=== PATIENT | female | born 1940 | race Caucasian/White ===

== ENCOUNTER → 2017-10-12 | Outpatient (CLI) | payer OTHER ==
[~2017-10-12] MED LIST: ASPI81CH PO; CHOL10002 PO; OLME20 PO; SERT100 PO; SIMV40 PO; SUMA25 PO
[2017-10-12 14:16] LABS: BASOPHILS ABSOLUTE AUTO 0.05 K/mm3 (0.00-0.23); BASOPHILS PERCENT AUTO 1 % (0-2); EOSINOPHILS ABSOLUTE AUTO 0.34 K/mm3 (0.00-0.68); EOSINOPHILS PERCENT AUTO 4 % (0-6); Hematocrit 41.9 % (33.0-51.0); Hemoglobin 14.2 g/dL (11.5-16.0); IMMATURE GRAN ABSOLUTE AUTO 0.03 K/mm3 (0.00-0.10); IMMATURE GRAN PERCENT AUTO 0 % (0-1); LYMPHOCYTES PERCENT AUTO 29 % (21-46); MONOCYTES ABSOLUTE AUTO 0.67 K/mm3 (0.16-1.47); MONOCYTES PERCENT AUTO 8 % (4-13); Mean Corpuscular HGB 31.7 pg (26.0-34.0); Mean Corpuscular HGB Conc 33.9 g/dL (31.5-36.5); Mean Corpuscular Volume 94 fL (80-100); Mean Platelet Volume 10.8 fL (9.1-12.4); NEUTROPHILS ABSOLUTE AUTO 5.14 K/mm3 (1.96-9.15); NEUTROPHILS PERCENT AUTO 59 % (41-73); Platelet Count 272 K/mm3 (150-400); RDW Coefficient Variation 12.7 % (11.7-14.2); Red Blood Cell Count 4.48 M/mm3 (3.80-5.20); White Blood Cell Count 8.73 K/mm3 (4.00-11.30)
[2017-10-12 14:51] LABS: Alanine Aminotransfer (ALT/SGP 27 U/L (12-78); Albumin/Globulin Ratio 1.2 (0.8-1.8); Alk Phos 95 U/L (50-136); Anion Gap 10 mmol/L (6-16); Aspartate Aminotrans (AST/SGOT 21 U/L (12-37); Bilirubin, Total 0.6 mg/dL (0.1-1.0); Blood Urea Nitrogen 10 mg/dL (8-24); Bun/Creatinine Ratio 12.1 (12.0-20.0); CO2, Blood 23 mmol/L (21-32); Calcium, Blood 9.3 mg/dL (8.5-10.1); Chloride, Blood 107 mmol/L (98-108); Creatinine, Blood 0.83 mg/dL (0.40-1.00); Globulin, Blood 3.4 g/dL (2.2-4.0); Glomerular Filtration Rate >60 (60-); Glucose, Blood 102 mg/dL (70-99); Potassium, Blood 3.9 mmol/L (3.5-5.5); Sodium, Blood 140 mmol/L (136-145); Total Protein, Blood 7.4 g/dL (6.4-8.2)
== END ==
LOC: LAB SHORT 14:09 → LAB 14:09
PROVIDERS: Physician Assistant
DX: R10.9 Unspecified abdominal pain (principal)
CPT/HCPCS: 80053; 83690; 85025

== ENCOUNTER 2020-01-11 07:09 | Day surgery (SDC) | payer OTHER ==
[~2020-01-11] VITALS: Ht 167.6 cm; Wt 78.8 kg
[~2020-01-11 07:09] MED LIST changes: +Cranberry300 MG PO; +OMEPRAZOLE20 M1 PO; +[UNRECOGNIZED DRUG - CODE] PO
== END 2020-01-11 09:20 | disposition home or self-care (01) ==
LOC: ORSCSDS 07:09
PROVIDERS: Ophthalmology
PROC: 08RJ3JZ Replacement of Right Lens with Synthetic Substitute, Percutaneous Approach (ICD-10-PCS; principal; 2020-01-11 08:30)
DX: H25.11 Age-related nuclear cataract, right eye (principal); I10 Essential (primary) hypertension; E03.9 Hypothyroidism, unspecified; E11.9 Type 2 diabetes mellitus without complications; E78.00 Pure hypercholesterolemia, unspecified; Z79.899 Other long term (current) drug therapy
CPT/HCPCS: J2001; J2250; J3010; J3301; J7040; V2632

== ENCOUNTER 2020-02-15 06:17 | Day surgery (SDC) | payer OTHER ==
[~2020-02-15] VITALS: Ht 167.6 cm; Wt 76.7 kg
[2020-02-15] MEDS ORDERED: GLUC500 (06:50)
[2020-02-15] MEDS ORDERED: CENTRUM SILVER1 EAC2 PO (06:50)
--- NOTE | 2020-02-15 06:54 | NUR ---
02/15/20 0654 Javier Haider CALL LIGHT WITHIN REACH.
--- NOTE | 2020-02-15 08:04 | NUR ---
02/15/20 0804 NOLAN LATIF PATIENT VSS, PATIENT ASSISTED TO RECLINER AND BLANKET PROVIDED. PATIENT DENIES PAIN OR NAUSEA, IV DC'D. SHIELD AND TAPE IN PLACE. PATIENT CALLED FOR RIDE HOME. ENGAGED IN DISCHARGE TEACHING, ALL QUESTIONS ASKED AND ANSWERED. PATIENT AWAITING DISCHARGE TO
== END 2020-02-15 08:04 | disposition home or self-care (01) ==
LOC: ORSCSDS 06:17
PROVIDERS: Ophthalmology
PROC: 08RK3JZ Replacement of Left Lens with Synthetic Substitute, Percutaneous Approach (ICD-10-PCS; principal; 2020-02-15 07:30)
DX: H25.12 Age-related nuclear cataract, left eye (principal); I10 Essential (primary) hypertension; Z79.899 Other long term (current) drug therapy
CPT/HCPCS: J2001; J2250; J3010; J3301; J7040; V2632

== ENCOUNTER 2022-10-30 08:22 | Day surgery (SDC) | payer OTHER ==
[~2022-10-30] VITALS: Ht 167.6 cm; Wt 66.3 kg
[2022-10-30] VITALS (18 sets, daily range): BP systolic 96–160; BP diastolic 56–84
[~2022-10-30 08:22] MED LIST changes: +CENTRUM SILVER1 EAC2 PO; +GLUC500
--- NOTE | 2022-10-30 09:04 | NUR ---
Ambulatory in Day Surgery History, Chart, Medications and Allergies reviewed before start of procedure.Lungs clear T/O to Auscultation. Patient confirms NPO status and agrees with scheduled surgery. Patient States Post-Procedure ride home has been arranged.
--- NOTE | 2022-10-30 09:43 | NUR ---
10/30/22 0943 Sammi Odonnell HISTORY, CHART, MEDICATIONS AND ALLERGIES REVIEWED BEFORE START OF PROCEDURE. PATIENT CONFIRMS NPO STATUS AND AGREES WITH SCHEDULED PROCEDURE. 3-LEAD EKG REVIEWED WITH PHYSICIAN PRIOR TO START OF PROCEDURE. MONITOR INTACT WITH CONTINUOUS PULSE OXIMETRY,CAPNOGRAPHY, 3-LEAD EKG, INTERMITTENT BP. SUPPLEMENTAL O2 TO BE TITRATED THROUGHOUT PROCEDURE TO MAINTAIN O2 SATURATION ABOVE 90%. PATIENT DETERMINED TO BE ASA APPROPRIATE FOR PROPOFOL SEDATION PRIOR TO START OF PROCEDURE BY
--- NOTE | 2022-10-30 11:13 | NUR ---
DISCHARGE NOTE Discharge instructions reviewed with patient. Patient verbalizes understanding. Copy given to patient to take home. Lungs clear T/O to Auscultation. Discharged via wheelchair to private car for ride home.
== END 2022-10-30 11:11 | disposition home or self-care (01) ==
LOC: ORSCMMR 08:22 → ORD 09:30 → ORSCMMR 09:30
PROVIDERS: Internal Medicine Gastroenterology
PROC: 0DB48ZX Excision of Esophagogastric Junction, Via Natural or Artificial Opening Endoscopic, Diagnostic (ICD-10-PCS; principal; 2022-10-30 09:30)
PROC: 0DB58ZX Excision of Esophagus, Via Natural or Artificial Opening Endoscopic, Diagnostic (ICD-10-PCS; principal; 2022-10-30 09:30)
PROC: 0DB68ZX Excision of Stomach, Via Natural or Artificial Opening Endoscopic, Diagnostic (ICD-10-PCS; principal; 2022-10-30 09:30)
DX: R13.10 Dysphagia, unspecified (principal); K20.90 Esophagitis, unspecified without bleeding; K29.70 Gastritis, unspecified, without bleeding; I10 Essential (primary) hypertension; K21.9 Gastro-esophageal reflux disease without esophagitis; Z79.899 Other long term (current) drug therapy; E78.00 Pure hypercholesterolemia, unspecified; F32.A Depression, unspecified
CPT/HCPCS: 88305; 88342; A9270; C1726; J2250; J2704; J3010; J7120

== ENCOUNTER 2024-01-06 12:37 | Inpatient (IN) | payer OTHER ==
[~2024-01-06] VITALS: Ht 167.6 cm; Wt 59.7 kg
[2024-01-06] MEDS ORDERED: Morphine Sulfate 4 MG/1 ML Injection IV ONE (12:55)
[2024-01-06] MEDS ORDERED: Ondansetron HCl 2 MG / ML 2ML Vial IV ONE (12:55)
[2024-01-06 13:11] LABS: BASOPHILS ABSOLUTE AUTO 0.07 K/mm3 (0.00-0.23); BASOPHILS PERCENT AUTO 1 % (0-2); EOSINOPHILS PERCENT AUTO 1 % (0-6); Hematocrit 43.4 % (33.0-51.0); Hemoglobin 15.1 g/dL (11.5-16.0); IMMATURE GRAN ABSOLUTE AUTO 0.06 K/mm3 (0.00-0.10); IMMATURE GRAN PERCENT AUTO 0 % (0-1); LYMPHOCYTES ABSOLUTE AUTO 1.85 K/mm3 (0.84-5.20); LYMPHOCYTES PERCENT AUTO 13 % (21-46); MONOCYTES ABSOLUTE AUTO 0.72 K/mm3 (0.16-1.47); MONOCYTES PERCENT AUTO 5 % (4-13); Mean Corpuscular HGB 31.9 pg (26.0-34.0); Mean Corpuscular HGB Conc 34.8 g/dL (31.5-36.5); Mean Corpuscular Volume 92 fL (80-100); Mean Platelet Volume 10.9 fL (9.1-12.4); NEUTROPHILS ABSOLUTE AUTO 11.62 K/mm3 (1.96-9.15); NEUTROPHILS PERCENT AUTO 80 % (41-73); Platelet Count 261 K/mm3 (150-400); RDW Coefficient Variation 12.4 % (11.7-14.2); RDW Standard Deviation 41.4 fL (35.1-46.3); Red Blood Cell Count 4.73 M/mm3 (3.80-5.20); White Blood Cell Count 14.52 K/mm3 (4.00-11.30)
[2024-01-06 13:28] LABS: Bun/Creatinine Ratio 14.2 (12.0-20.0); Calcium, Blood 9.9 mg/dL (8.5-10.1); Creatinine, Blood 0.85 mg/dL (0.40-1.00); Potassium, Blood 3.4 mmol/L (3.5-5.5)
[2024-01-06] MEDS ORDERED: HYDROmorphone HCl/Pf 1MG SYR IV ONE (13:40)
[2024-01-06] MEDS ORDERED: Diazepam 5 MG / ML 2ML SYR IV ONE (14:15)
[2024-01-06] MEDS ORDERED: CeFAZolin Sodium 2,000 MG in NS 100 ML IV SCH (14:40)
[2024-01-06] MEDS ORDERED: Acetaminophen 325 MG TABLET PO PRN (15:00)
[2024-01-06] MEDS ORDERED: Ondansetron HCl 2 MG / ML 2ML Vial IV PRN (15:05)
[2024-01-06] MEDS ORDERED: FentaNYL Citrate 50 MCG/ML 2 ML Injection IV PRN ×2 (15:35→22:15)
[2024-01-06] MEDS ORDERED: HYDROcodone 5-APAP 325 TAB PO PRN (15:35)
[2024-01-06] MEDS ORDERED: Potassium Chloride 20 MEQ TabCR PO ONE ×2 (15:40→20:40)
[2024-01-06] MEDS ORDERED: SUMAtriptan succinate 50 MG Tab PO PRN (15:40)
--- NOTE | 2024-01-06 16:45 | NUR ---
PATIENT ARRIVED FROM ER TODAY. RIGHT FEMUR FX PATIENT IS A&OX4. HER RIGHT LEG IS EXTERNALLY ROTATED WITH SLIGHT REDNESS ON THE RIGHT HIP. SHE DENIES NUMBNESS OR TINGLING THROUGHOUT ALL EXTREMITIES. PEDAL PULSES ARE STRONG AND WARM TO TOUCH. PURWICK IS IN PLACE AND ON LOW CONTINUOUS SUCTION. SHE IS CURRENTLY LAYING IN BED WITH CALL LIGHT IN REACH.
[2024-01-06 16:47] VITALS: BP 197/92
[2024-01-06 17:14] VITALS: BP 177/120
[2024-01-06 17:18] VITALS: BP 192/118
[2024-01-06] MEDS ORDERED: Atorvastatin 10 MG Tab PO SCH (18:00)
[2024-01-06 18:04] VITALS: BP 183/118
[2024-01-06] MEDS ORDERED: HydrALAZINE HCl 20 MG / ML 1ML Vial IV PRN (18:15)
[2024-01-06 19:57] VITALS: BP 146/96
[2024-01-06] MEDS ORDERED: Potassium Chloride 10 Meq Tablet SA PO ONE ×2 (20:35)
[2024-01-06] MEDS ORDERED: Famotidine 20 MG Tab PO SCH (21:00)
[2024-01-06] MEDS ORDERED: Cranberry Extract 250MG W/30 MG Vitamin C Tab PO SCH (21:00)
[2024-01-07] VITALS (20 sets, daily range): BP systolic 102–170; BP diastolic 69–102
--- NOTE | 2024-01-07 04:30 | NUR ---
SHIFT SUMMARY FELICE WAS ALERT AND FULLY ORIENTED ON ASSESSMENT. SHE COMPLAINS OF 9/10 PAIN TO R HIP/THIGH, RESPONDED WELL TO NORCO, LATER REPORTING 0 PAIN. PT IS SLOW TO RESPOND AND HAS DIFFICULTY FINDING WORDS, BUT RESPONDS APPROPRIATELY TO ORIENTATION QUESTION WHEN GIVEN TIME TO ANSWER. PT KEPT NPO FROM MIDNIGHT IN ANTICIPATION FOR SURGERY ON DAY SHIFT. PT RESTING COMFORTABLY IN BED WITH CALL LIGHT IN REACH.
[2024-01-07 05:25] LABS: Hematocrit 42.8 % (33.0-51.0); Mean Corpuscular HGB 32.3 pg (26.0-34.0); Mean Corpuscular Volume 92 fL (80-100); Mean Platelet Volume 10.8 fL (9.1-12.4); Platelet Count 241 K/mm3 (150-400); RDW Coefficient Variation 12.6 % (11.7-14.2); RDW Standard Deviation 42.5 fL (35.1-46.3); Red Blood Cell Count 4.64 M/mm3 (3.80-5.20); White Blood Cell Count 14.21 K/mm3 (4.00-11.30)
[2024-01-07 05:53] LABS: Bun/Creatinine Ratio 20.5 (12.0-20.0); Calcium, Blood 9.1 mg/dL (8.5-10.1); Creatinine, Blood 0.63 mg/dL (0.40-1.00); Potassium, Blood 3.7 mmol/L (3.5-5.5)
[2024-01-07] MEDS ORDERED: Glucosamine Sulfate 500 MG Cap PO SCH (09:00)
[2024-01-07] MEDS ORDERED: Ascorbic Acid 500 MG Tab PO SCH (09:00)
[2024-01-07] MEDS ORDERED: Polyethylene Glycol 3350 17 gm PO SCH (09:00)
[2024-01-07] MEDS ORDERED: Cholecalciferol 1000 Unit Tablet (=25MCG) PO SCH (09:00)
[2024-01-07] MEDS ORDERED: Multivitamins/Minerals 1 Tab PO SCH (09:00)
[2024-01-07] MEDS ORDERED: Enoxaparin 40 MG/0.4 ML SYR SC SCH (09:00)
[2024-01-07] MEDS ORDERED: Tranexamic Acid 100 ML IV SCH (10:05)
[2024-01-07] MEDS ORDERED: Vancomycin HCL 1,000 MG in NS 100 ML IV SCH (10:05)
[2024-01-07] MEDS ORDERED: CeFAZolin Sodium 2,000 MG in NS 100 ML IV SCH ×2 (10:05→21:00)
[2024-01-07] MEDS ORDERED: Ropivacaine 0.5% HCl/Pf 123.125 MG,EPINEPHrine HCL 0.25 MG,Ketorolac Tromethamine 15 MG... INFIL SCH (10:05)
[2024-01-07] MEDS ORDERED: Lactated Ringer's 1,000 ML IV SCH ×3 (12:05→19:40)
[2024-01-07] MEDS ORDERED: Lactated Ringer's 1,000 ML IV ONE ×2 (12:06→19:20)
[2024-01-07] MEDS ORDERED: Prochlorperazine Edisylate 10 mg Vial IV PRN (12:55)
[2024-01-07] MEDS ORDERED: Metoclopramide HCl 5MG / ML 2ML Vial IV PRN (12:55)
[2024-01-07] MEDS ORDERED: Magnesium Hydroxide Conc 10 ML UDC PO PRN (12:55)
[2024-01-07] MEDS ORDERED: Ondansetron HCl 2 MG / ML 2ML Vial IV PRN (12:55)
[2024-01-07] MEDS ORDERED: HYDROmorphone HCl/Pf 1MG SYR IV PRN (13:00)
[2024-01-07] MEDS ORDERED: HYDROcodone 5-APAP 325 TAB PO PRN (13:00)
[2024-01-07] MEDS ORDERED: Promethazine HCl 25 MG Tab PO PRN (13:00)
[2024-01-07] MEDS ORDERED: Bisacodyl 10 MG Supp PR PRN (13:00)
[2024-01-07] MEDS ORDERED: Etomidate 2MG / ML 10ML Vial ONE (13:06)
[2024-01-07] MEDS ORDERED: FentaNYL Citrate 50 MCG/ML 2 ML Injection ONE (13:26)
[2024-01-07] MEDS ORDERED: Vancomycin HCl 1000 MG ADDvantage ONE (14:59)
[2024-01-07] MEDS ORDERED: Rocuronium Bromide 10 MG/ML 5ML Injection IV ONE (15:17)
[2024-01-07] MEDS ORDERED: Phenylephrine HCl 100 MCG/ML-NS 10MLSYR (1MG/10ML) ONE (15:17)
[2024-01-07] MEDS ORDERED: Ondansetron HCl 2 MG / ML 2ML Vial ONE (15:17)
[2024-01-07] MEDS ORDERED: Dexamethasone Sod Phos 10 MG/ML 1ML VIAL ONE (15:17)
[2024-01-07] MEDS ORDERED: SuccINYLCHOLINE Chloride 100 MG/5 ML 5MLSYR ONE (15:17)
[2024-01-07] MEDS ORDERED: Sugammadex Sodium 200 MG/2ML SDV (100 MG/ML) ONE (15:18)
[2024-01-07] MEDS ORDERED: Acetaminophen 500 MG Tab PO SCH (16:00)
[2024-01-07] MEDS ORDERED: OLANZapine 10 MG Vial IM PRN (16:40)
--- NOTE | 2024-01-07 17:02 | NUR ---
ARRIVAL FROM PACU PT ARRIVED FROM PACU S/P R HIP REPAIR. PT ALERT AND NOT ORIENTED. NOT FOLLOWING DIRECTIONS AND UNABLE TO BE REDIRECTED. ATTEMPTED OUT OF BED AND GRABBING AT STAFF WITH PERSONAL CARE. HELEN PLACED ON TO KEEP PATIENT SAFE. IV PROTECTED WITH WEB ROLL AND LOOSE KERLEX. LIGHTS TURNED OFF AND NOISE REDUCED IN ROOM. PT IS BEGINNING TO FALL ASLEP AT THIS TIME. WILL REASSESS NEED FOR RESTRAINTS PATIENT REORIENTS. PT REMOVED NASAL CANULA ON ARRIVAL OXYGEN 95% ON ROOM AIR PATIENT IS ASLEEP. DRESSING TO RIGHT HIP CDI. PT ABLE TO MOVE R LEG AND PILLOW REPLACED BETWEEN LEGS TO MAINTAIN SEPARATION FOR POSTERIOR PRECAUTIONS. BED ALARM ON AND CALL LIGHT IS IN REACH. PUREWICK PLACED ON PATIENT AT THIS TIME. DR. MADERA NOTIFIED OF BEHAVIOR AND GAVE ORDERS FOR RESTRAINTS.
--- NOTE | 2024-01-07 17:37 | NUR ---
PT CONTINUING TO ATTEMPT OOB, ATTEMPTING TO REACH FOR STAFF NECK WHEN ATTEMPTING OOB. PRN ZYPREXA ADMINISTERED PER EMAR. PT PULLED IV FROM LEFT AC AND CONTINUES TO ATTEMPT TO REMOVE DNR BAND R FOREARM IV. SHE WILL FALL ASLEEP INTERMITTENTLY BUT WAKES UP AND TRIES TO GET OOB.
[2024-01-07] MEDS ORDERED: Ketorolac Tromethamine 15mg Vial IV SCH (18:00)
[2024-01-07] MEDS ORDERED: Metoprolol Tartrate 5 ML IV ONE (19:19)
[2024-01-07] MEDS ORDERED: Adenosine 3 MG/ML 2 ML Vial ONE (19:19)
[2024-01-07 19:59] LABS: Hematocrit 42.8 % (33.0-51.0); Hemoglobin 14.7 g/dL (11.5-16.0)
--- NOTE | 2024-01-07 20:11 | NUR ---
AT APPROX 1910 AID NOTIFIED THIS RN THAT [employer] WAS ALERTING AT A HR OF 180. MANUALLY CONFIRMED AND CALLED PROVIDER CHRISTINE. ORDERS RECIEVED FOR AN EKG, TELE, LOPRESSOR AND AN IV BOLUS. CHRISTINE TO BEDSIDE. TELE CONNECTED CONFIRMING SVT. WHILE ATTEMPTING TO ADMINISTER LOPRESSOR IV IN RFA INFILTRATED AND PT CONVERTED TO SR WHILE NEW IV WAS BEING STARTED. PER CHRISTINE DID NOT GIVE LOPRESSOR. BOLUS STARTED AT APPROX 1930. PT DENIED CP DURING INCIDENT, HER ORIENTATION CLEARED AND SHE WAS FOLLOWING DIRECTIONS AND COOPERATIVE WITH CARE. REPORT GIVEN TO RECIEVING MEDICAL I D SALES AND PATIENT TAKEN OVER WITH BELONGINGS.
--- NOTE | 2024-01-07 20:15 | NUR ---
TRANSFER NOTE PT FROM 217 TO PCU 20 FOR PRIOR EPISODE OF SVT AND CONFUSION. PT IS NOW ALERT AND ORIENTED X4 W/NO CONFUSION NOTED. SURGICAL DRESSING DRY AND INTACT. PT IS SR ON TELE W/BP WNL. AFEBRILE. LR BOLUS INFUSING THAT WAS STARTED ON SURGICAL FLOOR. PT WAS ORIENTED TO ROOM AND CALL LIGHT. PT DENIES ANY PAIN/DISCOMFORT AT THIS TIME. WILL CONTINUE TO MONITOR.
[2024-01-07 20:16] LABS: Calcium, Blood 9.1 mg/dL (8.5-10.1); Creatinine, Blood 0.61 mg/dL (0.40-1.00); Magnesium, Blood 2.1 mg/dL (1.6-2.4); Potassium, Blood 3.8 mmol/L (3.5-5.5)
[2024-01-07] MEDS ORDERED: Docusate Sodium 100 MG Cap PO SCH (21:00)
[2024-01-08] VITALS (7 sets, daily range): BP systolic 130–152; BP diastolic 67–90
[2024-01-08] MEDS ORDERED: Vancomycin HCL 1,000 MG in NS 100 ML IV SCH
[2024-01-08 04:19] LABS: BASOPHILS ABSOLUTE AUTO 0.02 K/mm3 (0.00-0.23); BASOPHILS PERCENT AUTO 0 % (0-2); EOSINOPHILS PERCENT AUTO 0 % (0-6); Hematocrit 39.3 % (33.0-51.0); Hemoglobin 13.3 g/dL (11.5-16.0); IMMATURE GRAN ABSOLUTE AUTO 0.06 K/mm3 (0.00-0.10); IMMATURE GRAN PERCENT AUTO 0 % (0-1); LYMPHOCYTES PERCENT AUTO 6 % (21-46); MONOCYTES ABSOLUTE AUTO 1.19 K/mm3 (0.16-1.47); MONOCYTES PERCENT AUTO 8 % (4-13); Mean Corpuscular HGB Conc 33.8 g/dL (31.5-36.5); Mean Corpuscular Volume 95 fL (80-100); Mean Platelet Volume 10.8 fL (9.1-12.4); NEUTROPHILS ABSOLUTE AUTO 12.38 K/mm3 (1.96-9.15); NEUTROPHILS PERCENT AUTO 85 % (41-73); Platelet Count 198 K/mm3 (150-400); RDW Coefficient Variation 12.6 % (11.7-14.2); RDW Standard Deviation 43.5 fL (35.1-46.3); Red Blood Cell Count 4.16 M/mm3 (3.80-5.20); White Blood Cell Count 14.55 K/mm3 (4.00-11.30)
[2024-01-08 04:36] LABS: Bun/Creatinine Ratio 16.7 (12.0-20.0); Calcium, Blood 9.1 mg/dL (8.5-10.1); Creatinine, Blood 0.66 mg/dL (0.40-1.00); Magnesium, Blood 1.8 mg/dL (1.6-2.4); Potassium, Blood 4.2 mmol/L (3.5-5.5)
--- NOTE | 2024-01-08 06:06 | NUR ---
SHIFT SUMMERY PT HAS HAD INTERMITTENT CONFUSION BUT W/REDIRECTION SHE HAS BEEN ABLE TO BE REDIRECTED. HER VSS HAVE BEEN STABLE. SHE HAS HAD NO FUTHER EPISODES OF SVT SINCE TRANSFERRING HERE FROM SURGICAL FLOOR.
[2024-01-08] MEDS ORDERED: Aspirin 81 MG Chew PO SCH (09:00)
[2024-01-08] MEDS ORDERED: Trimethoprim/Sulfamethoxazole DS Tab PO SCH (09:00)
--- NOTE | 2024-01-08 10:19 | NUR ---
am note this rn assumed care at 0700. vital signs stable. tele sinus rhythm. patient is alert and oriented 3-4. intermittent confusion and forgetful at times. patient is impulsive in getting up and bed alarm on for safety. denies pain, chest pain/pressure or shortness of breath. right hip dressing changed this am by ortho md. per md dressing can stay in place for five days before needing to be changed. md southng in to see patient and discussed plan of care. plan to go to rehab. patient agrees to this plan. this rn spoke with case sealer. see shift assessment for further detials,
--- NOTE | 2024-01-08 15:51 | NUR ---
UPDATE-MENTATION this rn in the patient rooms taking vitals and giving prescribed 1600 medications. this rn left to get water for patient and came back to give water and held a conversation with the patient. this rn asked how the patient visit was with her friends and patient said good and went into detail about a high school reunion. patient then stated "i thought you were part of a cult this moring when you came in" this rn asked this morning when coming in at shift change with the noc rn and patient stated, and patient stated "no just now". this rn asked where she was she stated the hospital. patient has no memory of this rn being in the room at all. this rn asked if she remember when md salvador came to change the dressing and this rn was in the room, patient stated "vaguely remember him, but not you". this rn asked if she remembered when md marcelo came in and she same response did not remember this rn in the room. this rn asked if she remember this rn in the room when occupational therapy and physical therapy came by patient stating no. this rn asked if she remembered the conversation this rn and mendez mancera had in the room with the patient about [place] and the alien convintion in [place] and the hot air balloons. patient does not remember having this conversation with either of. patient is asking about someone named "home" and stating that they have been in the room downstairs and that it is a staff member. this rn stating no staff members on today with that name. patient and this rn conversing after this conversation about her high school friends and the younger years
--- NOTE | 2024-01-08 16:26 | NUR ---
update this rn called md marcelo to update on mentation.
--- NOTE | 2024-01-08 18:32 | NUR ---
shift summary vital signs remain stable. surigcal tele. tele sinus rhyhm 90s. no acute changes. see previous note. plan remains up to date
--- NOTE | 2024-01-08 20:00 | NUR ---
ASSUMED CARE OF PT AT 1900. REPORT RECEIVED AT BEDSIDE. PT PRESENTS IN BED. ALERT AND SOMEWHAT DISORIENTED. NEEDS HELP TO REMAIN ON CONVERSATION TOPIC. DOES REORIENT WITH CUES. DRESSING TO RIGHT HIP CDI. DISTAL CMS CHECKS WNL. WILL REVIEW CHART AND PLAN OF CARE FOR THIS PT.
--- NOTE | 2024-01-08 22:06 | NUR ---
PT TRANSFERRED TO ROOM 225 SURGICAL FLOOR. BEDSIDE REPORT GIVEN TO BRITTANY GALEAS. ALLOWED FOR QUESTIONS. PT AGREEMENT WITH TRANSFER. REMAINS IN NSR. NO COMPLAINTS VOICED BY PT. VSS.
--- NOTE | 2024-01-08 22:20 | NUR ---
PT WAS TRANSFERRED TO 214 TO SURGICAL SERVICES FROM PCU.REPORT WAS RECEIVED PER CHINYERE ARCE RN. PT ALERT AND AMBULATORY FOR BRP WITH 2 ASSIST.PT WITH MILD FORGETFULNESS.REQUIRES VERBAL CUES.NO C/O CP OR SOB.TELE NSR HIP DRESSING D/I,CIRC CHECKS INTACT,VOIDING WITHOUT DIFF.BED ALARM ON.
[2024-01-09 03:55] VITALS: BP 164/84
--- NOTE | 2024-01-09 04:48 | NUR ---
SHIFT SUMMARY PT PCU TRANSFER THIS SHIFT. S/P LEFT HIP REPAIR. PT HAS RESTED T/O THE NIGHT. DENIES PAIN. PT HAS BEEN UP AND AMBULATING TO THE BATHROOM WITH 1 ASSIST/GAIT BELT AND TOLERATING. SURIGAL SITE WNL, AND VITALS STABLE. BED IN LOWEST POSITION, CALL LIGHT WITHIN REACH.
[2024-01-09 05:58] LABS: Hematocrit 38.7 % (33.0-51.0); Hemoglobin 13.2 g/dL (11.5-16.0); Mean Corpuscular HGB 31.8 pg (26.0-34.0); Mean Corpuscular HGB Conc 34.1 g/dL (31.5-36.5); Mean Corpuscular Volume 93 fL (80-100); Mean Platelet Volume 10.1 fL (9.1-12.4); Platelet Count 197 K/mm3 (150-400); RDW Coefficient Variation 12.6 % (11.7-14.2); RDW Standard Deviation 43.2 fL (35.1-46.3); Red Blood Cell Count 4.15 M/mm3 (3.80-5.20); White Blood Cell Count 8.56 K/mm3 (4.00-11.30)
[2024-01-09 06:31] LABS: Calcium, Blood 9.1 mg/dL (8.5-10.1); Creatinine, Blood 0.8 mg/dL (0.40-1.00); Potassium, Blood 4.1 mmol/L (3.5-5.5)
[2024-01-09 07:12] VITALS: BP 153/90
--- NOTE | 2024-01-09 11:13 | NUR ---
DR. MADERA ROUNDED. DISCUSSED THAT PT HAS BEEN ON TELE AND HAD NOW EVENTS FOR 48 HOURS PER INTELLIGENCE ANALYST JOSE. PT IS NSR @ 83 THIS AM.
[2024-01-09 14:48] VITALS: BP 134/83
--- NOTE | 2024-01-09 18:02 | NUR ---
SHIFT SUMMARY PT IS POD#2. PAIN MANAGED WITH TYLENOL AND TORADOL. NORCO GIVEN X1 THIS AM FOR ELEVATED PAIN. PT WAS ABLE TO WORK WITH THERAPY TODAY, SNF RECOMMENDED. PT IS A 1 PERSON MIN ASSIST WHEN OOB. FAMILY VISTED TODAY, PT APPEARS IN [employer].
[2024-01-09 19:25] VITALS: BP 133/76
--- NOTE | 2024-01-10 03:53 | NUR ---
SHIFT SUMMARY PT HAS RESTED T/O THE NIGHT, DENIES PAIN. REFUSED SCHEDULED PAIN MEDICATION. SURGICAL SITE WNL , DRESSING C/D/I. PT AMBULATED TO THE BATHROOM WITH 1 PA AND FWW, TOLERATED WELL. VOIDING ADEQUATELY. PLAN OF CARE REMAINS UNCHANGED. BED IN LOWEST POSITION, CALL LIGHT WITHIN REACH.
[2024-01-10 04:09] VITALS: BP 148/100
[2024-01-10 07:31] VITALS: BP 141/88
[2024-01-10] MEDS ORDERED: Metoprolol Succinate 25 MG TABCR PO SCH (09:00)
--- NOTE | 2024-01-10 12:12 | NUR ---
DOCTOR ROUNDS SPOKE WITH DR. MADERA REGARDING INCREASED HR OF 150 BPM. PER DELIVERY TABLE FEEDER JOSE HR ONLY REMAINED INCREASED 4-[address] MADERA STARTED METOPROLOL PO AND STATED OK TO DC TELE.
[2024-01-10 15:06] VITALS: BP 148/84
--- NOTE | 2024-01-10 17:45 | NUR ---
SHIFT SUMMARY PT IS POD#3 FROM R PRISCILLA HIP. PT HAS HAD MINIMAL PAIN, SHE IS GETTING SCHEDULED TYLENOL FOR PAIN. PT IS A 1 PERSON MINIMAL ASSIST WHEN OOB. PT TOLERATING PO. FRIENDS/FAMILY HAVE BEEN PRESENT FOR SUPPORT. PT USES CALL LIGHT APPROPRIATELY, SHE IS FORGETFUL AT TIMES BED/CHAIR ALARM HAS BEEN USED FOR SAFETY.
[2024-01-10 19:16] VITALS: BP 149/96
[2024-01-11 05:25] VITALS: BP 150/85
[2024-01-11 08:06] VITALS: BP 146/95
--- NOTE | 2024-01-11 08:11 | NUR ---
SUMMARY PT DID NOT REQUIRE ANY PAIN MEDS FOR ME.TOLERATES OOB FOR BRP WITH 1 ASSIST.RESPITE CARE PROVIDER REPORTED PT HAD SMALL BM THIS AM.
[2024-01-11 15:06] VITALS: BP 149/87
--- NOTE | 2024-01-11 18:38 | NUR ---
SHIFT SUMMARY POD3 R PRISCILLA HIP, A/OX4, VSS, TOLERATING PO, ABLE TO AMBULATE TO THE BATHROOM, DENIES PAIN T/O THE SHIFT TODAY, PER NOC RN SHE WAS CONFUSED LAST NIGHT BUT SHE WAS ABLE TO ANSWER QUESTIONS APPROPRIATELY TODAY AND HAD NO S/SX OF CONFUSION. AMBULATES WITH FWW/GB AND STAFF ASSIST. NO ACUTE EVENTS THIS SHIFT, CALL LIGHT IN REACH.
[2024-01-11 19:20] VITALS: BP 124/75
[2024-01-12 05:40] VITALS: BP 142/92
--- NOTE | 2024-01-12 06:08 | NUR ---
SHIFT SUMMARY PT HAS BEEN A/O X4 AND A STANDBY ASST TO BR W/ FWW AND GB. PT DENIED PAIN THIS SHIFT. VSS. PT RESTED MOST OF SHIFT. CAP REFILL <3 SECS IN R TOES, PEDAL PULSE PALPABLE, PT ABLE TO WIGGLE TOES BILATERALLY AND DENIES N/T. PT USING CALL LIGHT APPROPRIATELY. BED ALARM ON FOR SAFETY.
[2024-01-12 08:19] VITALS: BP 144/81
[2024-01-12 14:59] VITALS: BP 146/85
--- NOTE | 2024-01-12 17:44 | NUR ---
SHIFT SUMMARY POD4 R PRISCILLA HIP, A/OX4, VSS, TOLERATING PO, DENIES PAIN, ABLE TO AMBULATE IN HER ROOM AND HALLS WITH SBA FROM NURSING STAFF, VOIDING AND USING THE BATHROOM APPROPRIATELY, AQUECELL DRESSING CHANGED THIS SHIFT DUE TO IT PEELING ON ONE SIDE. NO ACUTE EVENTS THIS SHIFT, CALL LIGHT IN REACH.
[2024-01-12 19:07] VITALS: BP 137/80
--- NOTE | 2024-01-12 22:47 | NUR ---
PT DOES NOT HAVE IV ACCESS AND IS REFUSING ACCESS TO BE REESTABLISHED.
[2024-01-13 03:23] VITALS: BP 123/81
--- NOTE | 2024-01-13 05:24 | NUR ---
SHIFT SUMMARY NOC PT A/O X 4. PLEASANT AND COOPERATIVE WITH CARE. VSS. NO ACUTE CHANGES TO REPORT. PT POST OP DAY 5 OF R HIP HEMIARTHROPLASTY. AQUACEL DRESSING IN PLACE C/D/I. PT PAIN MANAGED WITH ONE DOSE SCHEDULED TYLENOL. PT DISCHARGE IS PENDING APPEAL TO INSURANCE COMPANY FOR REFUSING SNF PLACEMENT. PT CURRENTLY RESTING WITH BED IN LOWEST POSITION, AND CALL LIGHT WITHIN REACH.
--- NOTE | 2024-01-13 13:35 | NUR ---
Pt. is awake in a recliner when she welcomes my visit. Pt. is unsettled about the prognosis of rehab. Listen with empathy and a calming spirit. Pt. verbalized that the are having trouble placing her in rehab, and that she will not be able to return to her home, Seek to normalize the Pt. experience. Pt. displays evidence of both frustraion, fear, and a measure of anticipatory grief. With Pts. permission, prayed with Pt. Pt. verbalized gratitude for the spiritual care visit.
[2024-01-13 14:59] VITALS: BP 129/80
--- NOTE | 2024-01-13 15:26 | NUR ---
SHIFT SUMMARY: POD 5 RIGHT POSTERIOR HIP PATIENT IS A&OX4 BUT IS AT TIMES FORGETFUL OF INSTRUCTIONS BUT IS EASILY REORIENTED WITH VERBAL QUES. PATIENTS PAIN IS MANAGED WITH PO TYLENOL. HER RIGHT HIP HAS AN AQUACEL THAT IS C/D/I. SHE DENIES NUMBNESS OR TINGLING AT THIS TIME. SHE IS TOLERATING PO INTAKE, VOIDING, AND HAD A BM THIS MORNING. SHE IS A SBA WITH FWW AND GAIT BELT. PATIENT IS CURRENTLY IN THE RECLINER CHAIR WITH CALL LIGHT IN REACH. PATIENT CALLS APPROPRIATELY.
[2024-01-13 19:24] VITALS: BP 132/78
[2024-01-14 02:13] VITALS: BP 128/81
--- NOTE | 2024-01-14 07:54 | NUR ---
SHIFT SUMMARY NOC. PT A/O X4. POD 6 FOR R POSTERIOR HIP. AQUACEL C/D/I. DENIES PAIN. PT AWAKE AT TIMES DURING NIGHT BUT DENIED CONCERNS. PT AMBULATES WITH SBA, FWW, AND GAIT BELT. PT RESTED IN BED WITH CALL LIGHT IN REACH.
[2024-01-14 08:00] VITALS: BP 130/80
--- NOTE | 2024-01-14 14:25 | NUR ---
Pt. is awake in her recliner when she welcomes my visit. Pt. remembered this brand marketing specialist from our previous visit. Facilitated an update and considered matters that have her unsettled regarding a denial of coverage for her to go to rehab. Listen with empathy and a calming presence. Pt. verbalized confidence in the the hospice care transitions coordinator's ability to help resolve this issue. Pt. spoke of things at home. Pt. displays evidence of being encouraged by my visit. Matters of ana are considered. Prayed with Pt. Pt. verbalized gratitude for the spiritual care visit.
[2024-01-14 14:38] VITALS: BP 118/75
--- NOTE | 2024-01-14 17:00 | NUR ---
SUMMARY NO ACUTE CHANGES T/O SHIFT. PT WORKED WITH THERAPY AND HAS BEEN SITTING UP IN RECLINER MOST OF DAY. HAS REFUSED SCHEDULED TYLENOL AND DENIED ANY PAIN. CALL LIGHT IN REACH.
[2024-01-14 19:17] VITALS: BP 129/73
[2024-01-15 03:12] VITALS: BP 138/85
[2024-01-15 07:31] VITALS: BP 127/90
--- NOTE | 2024-01-15 07:35 | NUR ---
SHIFT SUMMARY NOC. PT A/O X4. PT POD 7 FOR R POSTERIOR HIP. AQUACEL C/D/I. DENIES PAIN AND DECLINING SCHEDULED TYLENOL. PT AMBULATES WITH SBA, FWW, AND GAIT BELT. PT RESTED WITH EYES CLOSED AND CALL LIGHT IN REACH.
[2024-01-15 14:47] VITALS: BP 127/79
[2024-01-15 14:49] LABS: SARS-Cov-2 (COVID-19) PCR, MMC NEGATIVE (NEGATIVE)
--- NOTE | 2024-01-15 15:53 | NUR ---
TRANSFER TO [facility] REPORT CALLED AT 1500. TRANSPORT LEFT AT 1545. PT A&OX4, VSS/RA, DARA PO, VOIDING/BM TODAY, AMB SBA FWW/GB, DENIES PAIN. LEFT VIA WC WITH TRANSPORT WITH ALL PERSONAL POSSESSIONS INCLUDING PURSE/CELL PHONE/TRUSTEE OF ESTATE/[place]/BOOKS AND ENVELOPE FOR UV.
== END 2024-01-15 15:43 | DRG 521 ==
LOC: ER 12:37 → SURS 14:59 → PCU 01-07 19:59 → SURS 01-08 21:00
PROVIDERS: Emergency Medicine; Nurse Practitioner Acute Care; Orthopaedic Surgery; ADMIT Internal Medicine
PROC: 0SRR039 Replacement of Right Hip Joint, Femoral Surface with Ceramic Synthetic Substitute, Cemented, Open Approach (ICD-10-PCS; principal; 2024-01-07 12:30)
DX: S72.001A Fracture of unspecified part of neck of right femur, initial encounter for closed fracture (principal); G92.8 Other toxic encephalopathy; I47.19 Other supraventricular tachycardia; E87.6 Hypokalemia; Z66 Do not resuscitate; G43.909 Migraine, unspecified, not intractable, without status migrainosus; I10 Essential (primary) hypertension; E78.00 Pure hypercholesterolemia, unspecified; F32.A Depression, unspecified; K21.9 Gastro-esophageal reflux disease without esophagitis; W10.8XXA Fall (on) (from) other stairs and steps, initial encounter; T41.45XA Adverse effect of unspecified anesthetic, initial encounter; Z60.2 Problems related to living alone; Z85.828 Personal history of other malignant neoplasm of skin; Z88.0 Allergy status to penicillin; Z88.8 Allergy status to other drugs, medicaments and biological substances
CPT/HCPCS: 36415; 71045; 72170; 73502; 80048; 82565; 83735; 84484; 85014; 85018; 85025; 85027; 93005; 93010; 96374; 96375; 97110; 97116; 97162; 97166; 97530; 97535; 99284-25; A9270; C1713; C1776; J0153; J0171; J0330; J0360; J0690; J0735; J1100; J1170; J1885; J2270; J2371; J2405; J2795; J3010; J3360; J3370; J7120; U0002